=== PATIENT | female | born 1970 | race Caucasian/White ===

== ENCOUNTER 2017-10-03 11:00 | Outpatient (CLI) | payer OTHER ==
[2017-10-06 10:43] LABS: SPECIMEN SOURCE Kidney
== END 2017-10-03 11:01 | disposition home or self-care (01) ==
LOC: LAB.WCP 11:00
PROVIDERS: ATTEND Physician Assistant Medical
DX: N20.0 Calculus of kidney (principal)
CPT/HCPCS: 82365

== ENCOUNTER 2021-11-15 13:24 | Outpatient (CLI) | payer OTHER | END 2021-11-15 13:25 | disposition home or self-care (01) | LOC: MAC.MOP 13:24 | PROVIDERS: ATTEND Physician Assistant Medical | DX: R00.2 Palpitations (principal) | CPT/HCPCS: 93242 ==

== ENCOUNTER 2022-03-09 15:01 | Outpatient (CLI) | payer OTHER | END 2022-03-09 15:02 | disposition home or self-care (01) | LOC: MAC.MOP 15:01 | PROVIDERS: ATTEND Physician Assistant Medical | DX: R00.2 Palpitations (principal) | CPT/HCPCS: 93242 ==

== ENCOUNTER 2022-03-21 10:30 | Outpatient (CLI) | payer OTHER | END 2022-03-21 10:31 | disposition home or self-care (01) | LOC: MAC.INF 10:30 | PROVIDERS: ATTEND Physician Assistant Medical | DX: I47.1 Supraventricular tachycardia (principal); I49.1 Atrial premature depolarization; I49.3 Ventricular premature depolarization | CPT/HCPCS: 93244 ==

== ENCOUNTER 2022-05-25 14:51 | Outpatient (CLI) | payer OTHER | END 2022-05-25 14:52 | disposition home or self-care (01) | LOC: DI 14:51 | PROVIDERS: ATTEND Physician Assistant Medical | DX: R00.2 Palpitations (principal) | CPT/HCPCS: 93306 ==

== ENCOUNTER 2022-10-18 07:16 | Day surgery (SDC) | payer OTHER ==
[2022-10-18] MEDS ORDERED: LACTATED RINGERS 1,000 ML IV ONE ×2 (07:19→08:57)
--- NOTE | 2022-10-18 07:56 | ANESTHESIA ---
Pre-Anesthesia VS, & Labs - Diagnosis screening - Procedure colonoscopy Vital Signs: Temp Pulse Resp BP Pulse Ox O2 Flow Rate 36 C L 83 16 142/86 H 99 10/18/22 07:22 10/18/22 07:22 10/18/22 07:22 10/18/22 07:22 10/18/22 07:22 Height: 5 ft 7 in Weight (kg): 71 kg Body Mass Index: 24.5 BMI Classification: Normal - NPO >8 hours - Is Patient ?: No - Lab Results Lab results reviewed: Yes Home Medications and Allergies Home Medications: Ambulatory Orders Losartan [Cozaar] 50 mg PO DAILY 10/17/22 Losartan [Cozaar] 50 mg PO DAILY 10/17/22 Allergies/Adverse Reactions: Allergies Allergy/AdvReac Type Severity Reaction Status Date / Time No Known Drug Allergies Allergy Verified 12/26/14 09:32 Anes History & Medical History - Anesthetic History Anesthesia Complications: reports: No previous complications Family history of Anesthesia Complications: Denies Family history of Malignant Hyperthermia: Denies - Medical History Cardiovascular: reports: Hypertension Pulmonary: reports: None Gastrointestinal: reports: None Urinary: reports: None Neuro: reports: None Musculoskeletal: reports: None Endocrine/Autoimmune: reports: None Blood Disorders: reports: Anemia Skin: reports: None Smoking Status: Never smoker - Surgical History General: reports: Appendectomy Gynecologic: reports: Hysterectomy Neurologic: reports: Craniotomy Exam General: Alert, Oriented x3, Cooperative Dental: WNL Mouth Openin Fingerbreadth Neck Mobility: Normal Mallampati classification: II Thyromental Distance: 4-6 cm Respiratory: Lungs clear Cardiovascular: Regular rate Plan Anesthesia Type: General, MAC Consent for Procedure(s) Verified and Reviewed: Yes Code Status: Attempt Resuscitation ASA classification: 2-Mild systemic disease Is this case an emergency?: No
[2022-10-18] MEDS ORDERED: MIDAZOLAM 2 MG/2 ML VIAL ONE (08:23)
[2022-10-18] MEDS ORDERED: PROPOFOL 500 MG/50 ML 500 MG/50 ML VIAL ONE (09:00)
[2022-10-18 09:29] VITALS: BP 106/72; O2SAT 97
--- NOTE | 2022-10-18 10:10 | ANESTHESIA POST OP EVALUATION ---
Anesthesia Post Eval - Post Anesthesia Eval Vitals: Last Vital Signs Temp 36.0 C L 10/18/22 09:18 Pulse 70 10/18/22 09:18 Resp 16 10/18/22 09:18 BP 106/72 10/18/22 09:18 Pulse Ox 97 10/18/22 09:18 O2 Flow Rate CV Function Including HR & BP: Stable Pain Control: Satisfactory Nausea & Vomiting: Negative Mental Status: Baseline Respiratory Status: Airway Patent Hydration Status: Satisfactory Anesthesia Complications: None
== END 2022-10-18 07:17 | disposition home or self-care (01) ==
LOC: SDS 07:16
PROVIDERS: ATTEND Surgery
PROC: 0DBL8ZX Excision of Transverse Colon, Via Natural or Artificial Opening Endoscopic, Diagnostic (ICD-10-PCS; 2022-10-18)
PROC: 0DBN8ZX Excision of Sigmoid Colon, Via Natural or Artificial Opening Endoscopic, Diagnostic (ICD-10-PCS; 2022-10-18)
PROC: 0DBK8ZX Excision of Ascending Colon, Via Natural or Artificial Opening Endoscopic, Diagnostic (ICD-10-PCS; principal; 2022-10-18 08:30)
DX: Z12.11 Encounter for screening for malignant neoplasm of colon (principal); D12.2 Benign neoplasm of ascending colon; D12.3 Benign neoplasm of transverse colon; K63.5 Polyp of colon; K64.9 Unspecified hemorrhoids; Z80.0 Family history of malignant neoplasm of digestive organs; I10 Essential (primary) hypertension
CPT/HCPCS: 45380; 45385; J7120

== ENCOUNTER 2023-04-21 08:22 | Outpatient (CLI) | payer OTHER ==
--- NOTE | 2023-04-24 10:32 | Mammography Report ---
BILATERAL DIGITAL SCREENING MAMMOGRAM 3D/2D: 04/21/2023 CLINICAL: Routine screening. Family history of breast cancer. Comparison is made to exams dated: 03/28/2022 mammogram, 01/13/2021 mammogram, 11/29/2019 mammogram, mammogram, 09/28/2016 mammogram, and 02/18/2015 mammogram - [facility] enter. There are scattered areas of fibroglandular density in both breasts (category b / 25%-50% glandular t issue). No significant masses, calcifications, or other findings are seen in either breast. There has been no significant interval change. IMPRESSION: NEGATIVE There is no mammographic evidence of malignancy. A 1 year screening mammogram is recommended. Based on the Tyrer Cuzick model (a risk assessment model) the patient's lifetime risk is 17.9% and he r 10 year risk is 5.0%. According to the ACR, ACS, and NCCN guidelines, an annual breast MRI exam cole ng with mammogram is recommended if the patient's lifetime risk is 20% or greater. This exam was interpreted at Station ID: [id number]. NOTE: For mammograms, a report in lay terms will be sent to the patient. Approximately 15% of breast malignancies will not be visualized mammographically. In the management of a palpable breast mass, a negative mammogram must not discourage biopsy of a clinically suspicious lesion. Electronically Signed By: Juan Wade M.D. [email or web address]:04/21/2023 09:03:27 ACR BI-RADS Category 1: Negative 3341F PARENCHYMAL PATTERN: (A) - The breast(s) demonstrate(s) scattered fibroglandular densities. BI-RADS CATEGORY: (1) - 1 Mammogram [id number] 1 year screening LATERALITY: (B)
== END 2023-04-21 08:23 | disposition home or self-care (01) ==
LOC: DI 08:22
DX: Z12.31 Encounter for screening mammogram for malignant neoplasm of breast (principal); Z80.3 Family history of malignant neoplasm of breast; R92.323 Mammographic fibroglandular density, bilateral breasts

== ENCOUNTER 2023-08-04 09:57 | Outpatient (CLI) | payer OTHER ==
--- NOTE | 2023-08-04 22:13 | DEXA Report ---
PROCEDURE: Dexa Spine and/or Hip INDICATIONS: POST MENOPAUSAL TECHNIQUE: Dual energy x-ray absorptiometry (DXA) was performed on a [employer] System. Regions measur ed are the AP Spine, femoral neck, and if needed forearm. COMPARISON: None. FINDINGS: Lumbar Spine: Bone Mineral Density: 1.167 g/cm/cm,T score: -0.1. Left Femoral Neck: Bone Mineral Density: 0.983 g/cm/cm, T score: -0.4. Left Hip: Bone Mineral Density: 1.023 g/cm/cm,T score: 0.1. (T score greater or equal to -1.0: NORMAL) (T score from -1.1 to -2.4: OSTEOPENIA) (T score less than or equal to -2.5 to: OSTEOPOROSIS) Impression: By WHO criteria, this patient has normal bone mineral density. Patients with diagnosis of osteoporosis or osteopenia should have regular bone mineral density assess ment. For those eligible for Medicare, routine testing is allowed once every 2 years. Testing frequ ency can be increased for patients who have rapidly progressing disease or for those who are receivin g medical therapy to restore bone mass. Reviewed by: Juan Denise MD on 08/04/2023 10:12 PM PDT Approved by: Juan Denise MD on 08/04/2023 10:12 PM PDT Station ID: [id number]
== END 2023-08-04 09:58 | disposition home or self-care (01) ==
LOC: DI 09:57
PROVIDERS: ATTEND Physician Assistant Medical
DX: Z78.0 Asymptomatic menopausal state (principal)